=== PATIENT | male | born 1980 | race Caucasian/White ===

== ENCOUNTER 2018-02-10 19:38 | Emergency (ER) | payer SELFPAY ==
[~2018-02-10] VITALS: Ht 180.3 cm; Wt 106.6 kg
[~2018-02-10 19:38] MED LIST: ACET650T79
[2018-02-10 19:59] VITALS: BP 152/98
[2018-02-10] MEDS ORDERED: TETRACAINE HCL 0.5% OPTH(EYE) SOLN 4ML ONE (22:13)
== END 2018-02-10 22:42 | disposition home or self-care (01) ==
LOC: ER 19:38
DX: H16.002 Unspecified corneal ulcer, left eye (principal); Z79.899 Other long term (current) drug therapy

== ENCOUNTER 2019-04-26 14:12 | Emergency (ER) | payer SELFPAY ==
[~2019-04-26] VITALS: Ht 182.9 cm; Wt 99.8 kg
[2019-04-26 14:37] VITALS: BP 141/86
[2019-04-26] MEDS ORDERED: cefTRIAXone SOD 1,000 MG VL IM ONE (15:15)
== END 2019-04-26 16:25 | disposition home or self-care (01) ==
LOC: ER 14:14
DX: I80.9 Phlebitis and thrombophlebitis of unspecified site (principal); F17.210 Nicotine dependence, cigarettes, uncomplicated; F15.10 Other stimulant abuse, uncomplicated
CPT/HCPCS: 73090; 96372; 99283; J0696

== ENCOUNTER 2020-09-07 23:50 | Emergency (ER) | payer OTHER ==
[~2020-09-07] VITALS: Ht 180.3 cm; Wt 81.6 kg
[2020-09-08 01:19] LABS: Basophils # (auto) 0 10 ^3/uL (0-0.2); Basophils % (auto) 0.5 % (0.0-2.0); Eosinophils # (auto) 0 10 ^3/uL (0-0.8); Eosinophils % (auto) 0.3 % (0.0-7.0); Hematocrit 50.9 % (41.0-53.0); Hemoglobin 17.3 g/dL (13.5-17.5); Lymphocytes # (auto) 0.7 10 ^3/uL (0.4-5.4); Lymphocytes % (auto) 7.8 % (10.0-50.0); Mean Corpuscular Hemoglobin 30.9 pg (28.0-32.0); Mean Corpuscular Hgb Conc. 33.9 g/dL (32.0-36.0); Mean Corpuscular Volume 91.2 fL (80.0-100.0); Monocytes # (auto) 0.5 10 ^3/uL (0-1.3); Monocytes % (auto) 5.8 % (0.0-12.0); Neutrophils % (auto) 85.6 % (37.0-80.0); Platelet Count (auto) 251 10^3/uL (140-450); Red Blood Cells 5.58 10^6/uL (4.5-5.90); Red Cell Distribution Width 13.8 % (11.8-14.3); White Blood Cell 9.3 10^3/uL (4.4-10.8)
[2020-09-08 01:32] LABS: Anion Gap 6 (5-15); Blood Urea Nitrogen 16 mg/dL (7-18); Calcium 8.6 mg/dL (8.5-10.1); Carbon Dioxide 25 mmol/L (21-32); Chloride 106 mmol/L (98-107); Glucose 135 mg/dL (74-106); Potassium 4.2 mmol/L (3.5-5.1); Salicylate < 1.7 mg/dL (2.8-20.0); Sodium 137 mmol/L (136-145)
[2020-09-08 01:34] LABS: Alanine Aminotransferase 53 U/L (16-61); BUN/Creatinine Ratio 11.1; Blood Alcohol < 3.0 mg/dL (0-5); GFR African American 71 mL/min; GFR Non-African American 58 mL/min
[2020-09-08 01:35] LABS: Acetaminophen < 2.0 ug/mL (10-30)
[2020-09-08 01:43] LABS: Alkaline Phosphatase 108 U/L (45-117); Aspartate Aminotransferase 33 U/L (15-37); Bilirubin, Total 0.2 mg/dL (0.2-1.0)
[2020-09-08 02:00] VITALS: BP 112/71
== END 2020-09-08 03:41 | disposition home or self-care (01) ==
LOC: EDBD 23:50 → ER 23:50
DX: T50.901A Poisoning by unspecified drugs, medicaments and biological substances, accidental (unintentional), initial encounter (principal); R41.82 Altered mental status, unspecified; R94.31 Abnormal electrocardiogram [ECG] [EKG]; Y92.89 Other specified places as the place of occurrence of the external cause
CPT/HCPCS: 36415; 80053; 80320; 80329; 82962; 85025; 93005